=== PATIENT | female | born 1960 | race African-American/Black ===

== ENCOUNTER 2017-10-25 17:26 | Inpatient (IN) | payer MEDICAID ==
[~2017-10-25] VITALS: Ht 160 cm; Wt 75.4 kg
[~2017-10-25 17:26] MED LIST: ALBU05; ALBUL; FERR-43; FOLI0.8T; PANT40TA4; POTA10TA11; SEROQUEL; TDUR2; VALS80TA2; WARF6TAB22; ZOLOFT; [UNRECOGNIZED DRUG - CODE]
[2017-10-25] MEDS ORDERED: ONDANSETRON HCL 4MG/2ML VIAL IV STA (18:51)
[2017-10-25] MEDS ORDERED: METHYLPREDNISOLONE SOD SUCC 125 MG/2 ML VIAL IV STA (18:51)
[2017-10-25] MEDS ORDERED: MORPHINE SULFATE 4 MG/ML CPJ (NOT FOR IM USE) IV STA (18:51)
[2017-10-25] MEDS ORDERED: ASPIRIN 81MG TABLET PO STA (18:51)
[2017-10-25] MEDS ORDERED: IPRATROPIUM/ALBUTEROL 0.5-3(2.5)MG/3ML NEB HHN ONE (19:00)
[2017-10-25] MEDS ORDERED: LEVOFLOXACIN 750MG PREMIX 150 ML IV ONE (19:00)
[2017-10-25] MEDS ORDERED: MAGNESIUM 2 G PREMIX 50 ML IV ONE (19:00)
[2017-10-25 19:15] LABS: BASOPHILS % 0.6 % (0.0-2.0); EOSINOPHILS % 0.2 % (0.0-5.0); HEMOGLOBIN. 13.9 g/dL (12.0-16.0); LYMPHOCYTES % 12.7 % (20.0-50.0); MEAN CORPUSCULAR HEMOGLOBIN 27.9 pg (28.0-32.0); MEAN CORPUSCULAR VOLUME 82.4 fL (81.0-99.0); MEAN PLATELET VOLUME 8.4 fl (7.4-10.4); MONOCYTES % 6.3 % (2.0-8.0); NEUTROPHILS % 80.2 % (40.0-76.0); PLATELET 275 x1000/uL (130-400); RED BLOOD CELL COUNT 4.98 mill/uL (4.2-5.4); RED CELL DISTRIBUTION WIDTH 18.2 % (11.6-14.6)
[2017-10-25 19:25] LABS: CHLORIDE 99 mEq/L (98-107); ETHANOL BLOOD < 10 mg/dL
[2017-10-25 19:26] LABS: D-DIMER 1.62 mg/L FEU (<0.50); INR 1.4; PARTIAL THROMBOPLASTIN TIME 41.4 sec (23.4-31.0); PROTHROMBIN TIME 14.6 sec (9.4-11.6)
[2017-10-25 19:43] LABS: CREATINE KINASE 1418 IU/L (26-192)
[2017-10-25] MEDS ORDERED: ENOXAPARIN 60MG/0.6ML SYR SUBCUT ONE (19:45)
[2017-10-25 20:10] LABS: BG BASE EXCESS -0.6 mmol/L (-2.0-2.0); BG CARBOXYHEMOGLOBIN 1.3 % (0.5-1.5); BG DEOXYHEMOGLOBIN 6.8 % (0.0-5.0); BG FRACTION INSPIRED OXYGEN 21; BG HCO3 ACT 22.4 mmol/L (22.0-26.0); BG METHEMOGLOBIN 0.1 % (0.0-1.5); BG OXYGEN SATURATION 93.1 % (92.0-98.5); BG OXYHEMOGLOBIN 91.8 % (94.0-97.0); BG PCO2 32.2 mmHg (35.0-45.0); BG PO2 62.1 mmHg (75.0-100.0); BG SAMPLE SITE RIGHT RADIAL; BG TOTAL HEMOGLOBIN 13.9 g/dL (12.0-18.0); BG VENT MODE ROOM AIR
[2017-10-25] MEDS ORDERED: IOHEXOL-350 100 ML BOTTLE ONE (21:09)
[2017-10-25] MEDS ORDERED: HYDROMORPHONE HCL/PF 2MG/ML CPJ IV PRN (23:15)
[2017-10-25] MEDS ORDERED: METOPROLOL TARTRATE 50MG TABLET PO ONE (23:34)
[2017-10-25] MEDS: NITROGLYCERIN OINT 1GM/INCH UDPKT TD SCH (23:59)
[2017-10-26] VITALS (13 sets, daily range): BP systolic 90–136; BP diastolic 55–93
[2017-10-26] MEDS: ATORVASTATIN CALCIUM 40MG TABLET PO SCH ×2 (00:02→20:41)
[2017-10-26] MEDS: METOPROLOL TARTRATE 50MG TABLET PO SCH ×2 (00:02→08:15)
[2017-10-26] MEDS: IPRATROPIUM/ALBUTEROL 0.5-3(2.5)MG/3ML NEB HHN PRN ×2 (05:16→12:30)
[2017-10-26] MEDS: OMEPRAZOLE 20MG CAPSULE EXTENDED RELEASE PO SCH (06:26)
[2017-10-26] MEDS: NITROGLYCERIN OINT 1GM/INCH UDPKT TD SCH ×3 (06:27→21:14)
[2017-10-26 07:42] LABS: CLARITY URINE CLEAR (CLEAR); COLOR URINE YELLOW (YELLOW); KETONES URINE NEGATIVE (NEGATIVE); LEUKOCYTE ESTERASE URINE NEGATIVE (NEGATIVE); NITRITE URINE NEGATIVE (NEGATIVE); OCCULT BLOOD URINE 2+ (NEGATIVE); PROTEIN URINE NEGATIVE (NEGATIVE); SPECIFIC GRAVITY URINE 1.064 (1.005-1.030); UROBILINOGEN URINE 0.2 E.U./dL (0.2-1.0)
[2017-10-26 07:52] LABS: *AMPHETAMINES SCREEN URINE NEGATIVE (NEGATIVE); *BARBITURATES SCREEN URINE NEGATIVE (NEGATIVE); *BENZODIAZEPINES SCREEN URINE NEGATIVE (NEGATIVE); *COCAINE SCREEN URINE PRESUMTIVE POSITIVE (NEGATIVE); CANNABINOID URINE SCREEN PRESUMTIVE POSITIVE (NEGATIVE); METHADONE URINE SCREEN NEGATIVE (NEGATIVE); OPIATES URINE SCREEN PRESUMTIVE POSITIVE (NEGATIVE); PHENCYCLIDINE URINE SCREEN NEGATIVE (NEGATIVE)
[2017-10-26] MEDS: ASPIRIN 325MG EC TABLET PO SCH (08:14)
[2017-10-26] MEDS: ENOXAPARIN 40MG/0.4ML SYR SUBCUT SCH (08:16)
[2017-10-26] MEDS ORDERED: IPRATROPIUM/ALBUTEROL 0.5-3(2.5)MG/3ML NEB HHN PRN (08:45)
[2017-10-26] MEDS ORDERED: METHYLPREDNISOLONE SOD SUCC 40 MG/ML VIAL IV SCH (09:00)
[2017-10-26] MEDS: LEVOFLOXACIN 500MG PREMIX 100 ML IV SCH (10:05)
[2017-10-26] MEDS: BUDESONIDE 0.5MG/2ML NEB HHN SCH ×2 (12:29→21:44)
[2017-10-26] MEDS: NICOTINE 7MG PATCH TD SCH (13:11)
[2017-10-26] MEDS: HYDROCODONE/ACETAMINOPHEN 5/325MG TABLET PO PRN ×2 (13:19→20:43)
[2017-10-26] MEDS ORDERED: WARFARIN SODIUM 7.5MG TABLET PO SCH (18:00)
[2017-10-26] MEDS: METHYLPREDNISOLONE SOD SUCC 40 MG/ML VIAL IV SCH (20:41)
[2017-10-27] VITALS (12 sets, daily range): BP systolic 90–118; BP diastolic 52–73
[2017-10-27] MEDS ORDERED: ONDANSETRON HCL 4MG/2ML VIAL IV PRN
[2017-10-27] MEDS: ZOLPIDEM TARTRATE 5MG TABLET PO PRN ×2 (00:01→21:26)
[2017-10-27] MEDS: NITROGLYCERIN OINT 1GM/INCH UDPKT TD SCH ×3 (06:00→21:29)
[2017-10-27] MEDS: OMEPRAZOLE 20MG CAPSULE EXTENDED RELEASE PO SCH (06:42)
[2017-10-27 07:06] LABS: BASOPHILS % 0.5 % (0.0-2.0); HEMATOCRIT. 33.6 % (36.0-48.0); HEMOGLOBIN. 11.2 g/dL (12.0-16.0); LYMPHOCYTES % 14.1 % (20.0-50.0); MEAN CORPUSCULAR HEMOGLOBIN 27.4 pg (28.0-32.0); MEAN CORPUSCULAR VOLUME 82.1 fL (81.0-99.0); MEAN PLATELET VOLUME 8.5 fl (7.4-10.4); MONOCYTES % 5.5 % (2.0-8.0); NEUTROPHILS % 79.9 % (40.0-76.0); PLATELET 238 x1000/uL (130-400); RED BLOOD CELL COUNT 4.09 mill/uL (4.2-5.4)
[2017-10-27 07:12] LABS: INR 1.9; PROTHROMBIN TIME 19.2 sec (9.4-11.6)
[2017-10-27 07:26] LABS: CHLORIDE 102 mEq/L (98-107)
[2017-10-27] MEDS: ASPIRIN 325MG EC TABLET PO SCH (08:20)
[2017-10-27] MEDS: ENOXAPARIN 40MG/0.4ML SYR SUBCUT SCH (08:20)
[2017-10-27] MEDS: METHYLPREDNISOLONE SOD SUCC 40 MG/ML VIAL IV SCH (08:20)
[2017-10-27] MEDS: NICOTINE 7MG PATCH TD SCH (08:21)
[2017-10-27] MEDS: LEVOFLOXACIN 500MG PREMIX 100 ML IV SCH (08:21)
[2017-10-27] MEDS: BUDESONIDE 0.5MG/2ML NEB HHN SCH ×2 (09:05→20:08)
[2017-10-27] MEDS: IPRATROPIUM/ALBUTEROL 0.5-3(2.5)MG/3ML NEB HHN PRN (12:00)
[2017-10-27] MEDS: HYDROCODONE/ACETAMINOPHEN 5/325MG TABLET PO PRN (16:48)
[2017-10-27] MEDS ORDERED: WARFARIN SODIUM 5MG TABLET PO SCH (18:00)
[2017-10-27] MEDS ORDERED: DOBUTAMINE 250MG PREMIX 250 ML IV NR (19:15)
[2017-10-27] MEDS: GUAIFENESIN 600MG ER TABLET PO SCH (20:42)
[2017-10-27] MEDS: ATORVASTATIN CALCIUM 40MG TABLET PO SCH (20:42)
[2017-10-28] VITALS (8 sets, daily range): BP systolic 94–125; BP diastolic 53–71
[2017-10-28] MEDS: NITROGLYCERIN OINT 1GM/INCH UDPKT TD SCH ×2 (05:42→14:14)
[2017-10-28] MEDS: BUDESONIDE 0.5MG/2ML NEB HHN SCH (08:45)
[2017-10-28] MEDS: IPRATROPIUM/ALBUTEROL 0.5-3(2.5)MG/3ML NEB HHN PRN (08:45)
[2017-10-28] MEDS: ASPIRIN 325MG EC TABLET PO SCH (09:37)
[2017-10-28] MEDS: NICOTINE 7MG PATCH TD SCH (09:37)
[2017-10-28] MEDS: FAMOTIDINE 20MG TABLET PO SCH ×2 (09:37→17:30)
[2017-10-28] MEDS: GUAIFENESIN 600MG ER TABLET PO SCH (09:37)
[2017-10-28 11:29] LABS: BASOPHILS % 0.9 % (0.0-2.0); EOSINOPHILS % 0.6 % (0.0-5.0); HEMATOCRIT. 34.2 % (36.0-48.0); HEMOGLOBIN. 11.4 g/dL (12.0-16.0); LYMPHOCYTES % 25.9 % (20.0-50.0); MEAN CORPUSCULAR HEMOGLOBIN 27.6 pg (28.0-32.0); MEAN CORPUSCULAR VOLUME 82.9 fL (81.0-99.0); MEAN PLATELET VOLUME 8.2 fl (7.4-10.4); MONOCYTES % 7.3 % (2.0-8.0); NEUTROPHILS % 65.3 % (40.0-76.0); PLATELET 238 x1000/uL (130-400); RED BLOOD CELL COUNT 4.13 mill/uL (4.2-5.4); RED CELL DISTRIBUTION WIDTH 17.5 % (11.6-14.6)
[2017-10-28 11:30] LABS: INR 2.2; PROTHROMBIN TIME 22.7 sec (9.4-11.6)
[2017-10-28] MEDS ORDERED: DOBUTAMINE 250MG PREMIX 250 ML IV ONE (11:53)
[2017-10-28] MEDS: LEVOFLOXACIN 500MG PREMIX 100 ML IV SCH (12:14)
[2017-10-28 12:21] LABS: CHLORIDE 107 mEq/L (98-107)
[2017-10-28 12:37] LABS: CREATINE KINASE MB FRACTION 6.6 ng/mL (0.5-3.6)
[2017-10-28 13:17] LABS: TROPONIN I 8.6 ng/mL (0.00-0.04)
[2017-10-28] MEDS ORDERED: WARFARIN SODIUM 5MG TABLET PO SCH (18:00)
[2017-10-29] MEDS ORDERED: LEVOFLOXACIN 500MG TABLET PO SCH (11:00)
== END 2017-10-28 18:55 | disposition home or self-care (01) | DRG 720 ==
LOC: ER 17:26 → 3WST 19:54 → EDBEDREQ 19:59 → EDBEDREQTM 19:59 → EDBEDREQSVC 19:59 → ENRESERV 21:03
PROVIDERS: ADMIT Internal Medicine; ATTEND Internal Medicine
DX: A41.9 Sepsis, unspecified organism (principal); J96.01 Acute respiratory failure with hypoxia; I21.4 Non-ST elevation (NSTEMI) myocardial infarction; I50.23 Acute on chronic systolic (congestive) heart failure; D68.9 Coagulation defect, unspecified; M62.82 Rhabdomyolysis; R56.9 Unspecified convulsions; J44.1 Chronic obstructive pulmonary disease with (acute) exacerbation; J06.9 Acute upper respiratory infection, unspecified; K64.9 Unspecified hemorrhoids; E78.00 Pure hypercholesterolemia, unspecified; E78.5 Hyperlipidemia, unspecified; F12.10 Cannabis abuse, uncomplicated; F14.10 Cocaine abuse, uncomplicated; F17.210 Nicotine dependence, cigarettes, uncomplicated; F32.9 Major depressive disorder, single episode, unspecified; F41.9 Anxiety disorder, unspecified; G43.909 Migraine, unspecified, not intractable, without status migrainosus; I11.0 Hypertensive heart disease with heart failure; H92.09 Otalgia, unspecified ear; R63.4 Abnormal weight loss; H54.7 Unspecified visual loss; I05.0 Rheumatic mitral stenosis; I73.9 Peripheral vascular disease, unspecified; K59.00 Constipation, unspecified; Z59.0 Homelessness; Z79.01 Long term (current) use of anticoagulants; Z79.899 Other long term (current) drug therapy; Z88.0 Allergy status to penicillin; Z68.29 Body mass index [BMI] 29.0-29.9, adult; Z95.2 Presence of prosthetic heart valve
CPT/HCPCS: 36415; 36600; 71045; 71275; 78452; 80048; 80053; 80305; 81003; 82375; 82550; 82553; 82805; 83036; 83605; 83690; 83880; 84443; 84484; 85025; 85379; 85610; 85730; 87040; 93005; 93017; 93306; 94640; 94664; 96365; 96367; 96372; 96375; 99291; A9500; G0482; J1170; J1250; J1650; J1956; J2270; J2405; J2920; J2930; J3475; J7050; J7620; J7626; Q9967

== ENCOUNTER 2021-09-02 13:32 | Emergency (ER) | payer MEDICAID, OTHER ==
[~2021-09-02] VITALS: Ht 172.7 cm; Wt 73.0 kg
[~2021-09-02 13:32] MED LIST changes: -ALBU05; +ALBU4TAB6 MT; -ALBUL; +ATOR40TA70 MT; +CARV6.2548 MT; +CLOB10TA PO; +FAMO20TA8 MT; -FERR-43; +FERR325T6 MT; +FOLI-43 MT; -FOLI0.8T; +GABA-532 MT; +LISI2.5T47 MT; +LORA-250 MT; +METO25TA6 MT; +NITR0.4T49 SL; +OLAN2.5T3 MT; -PANT40TA4; +PHEN100C12 MT; -POTA10TA11; -SEROQUEL; -TDUR2; +THEO400T MT; -VALS80TA2; +VITA1CAP MT; -WARF6TAB22; -ZOLOFT
[2021-09-02] MEDS ORDERED: ONDANSETRON HCL 4MG/2ML INJ IV STA ×2 (13:52→16:51)
[2021-09-02] MEDS ORDERED: ASPIRIN 81MG TABLET PO ONE (14:00)
[2021-09-02] MEDS ORDERED: NITROGLYCERIN 0.4MG TABLET SL SL PRN (14:00)
[2021-09-02 15:17] LABS: CHLORIDE 104 mEq/L (98-107)
[2021-09-02 15:43] LABS: BASOPHILS % 0.6 % (0.0-2.0); EOSINOPHILS % 0.1 % (0.0-5.0); HEMATOCRIT. 40.9 % (36.0-48.0); HEMOGLOBIN. 13.4 g/dL (12.0-16.0); LYMPHOCYTES % 15.7 % (20.0-50.0); MEAN CORPUSCULAR HEMOGLOBIN 28.1 pg (28.0-32.0); MEAN CORPUSCULAR VOLUME 85.9 fL (81.0-99.0); MEAN PLATELET VOLUME 8.7 fl (7.4-10.4); MONOCYTES % 6.1 % (2.0-8.0); NEUTROPHILS % 77.5 % (40.0-76.0); PLATELET 234 x1000/uL (130-400); RED BLOOD CELL COUNT 4.77 mill/uL (4.2-5.4); RED CELL DISTRIBUTION WIDTH 17.7 % (11.6-14.6)
[2021-09-02] MEDS ORDERED: MORPHINE SULFATE 4 MG/ML CPJ (NOT FOR IM USE) IV STA (16:51)
[2021-09-02] MEDS ORDERED: DILTIAZEM HCL 120MG CAPSULE CD 24HR PO ONE (19:00)
[2021-09-02 20:06] LABS: *AMPHETAMINES SCREEN URINE NEGATIVE (NEGATIVE); *BARBITURATES SCREEN URINE NEGATIVE (NEGATIVE); *BENZODIAZEPINES SCREEN URINE NEGATIVE (NEGATIVE); *COCAINE SCREEN URINE NEGATIVE (NEGATIVE); METHADONE URINE SCREEN NEGATIVE (NEGATIVE)
[2021-09-02 20:07] LABS: CANNABINOID URINE SCREEN PRESUMTIVE POSITIVE (NEGATIVE); OPIATES URINE SCREEN PRESUMTIVE POSITIVE (NEGATIVE); PHENCYCLIDINE URINE SCREEN NEGATIVE (NEGATIVE)
[2021-09-02 20:26] LABS: CLARITY URINE TURBID (CLEAR); COLOR URINE DARK YELLOW (YELLOW)
[2021-09-02 20:27] LABS: KETONES URINE TRACE (NEGATIVE); NITRITE URINE NEGATIVE (NEGATIVE); OCCULT BLOOD URINE 1+ (NEGATIVE); PROTEIN URINE 1+ (NEGATIVE); SPECIFIC GRAVITY URINE 1.033 (1.005-1.030)
[2021-09-02 20:28] LABS: LEUKOCYTE ESTERASE URINE 1+ (NEGATIVE)
[2021-09-02] MEDS ORDERED: MORPHINE SULFATE 2 MG/ML CPJ (NOT FOR IM USE) IV ONE (20:30)
[2021-09-02] MEDS ORDERED: ONDANSETRON HCL 4MG/2ML INJ IV ONE (20:30)
[2021-09-02 20:50] VITALS: BP 134/88
== END 2021-09-02 20:50 | disposition short-term general hospital (02) ==
LOC: ER 13:39
DX: R11.2 Nausea with vomiting, unspecified (principal); I48.91 Unspecified atrial fibrillation; R74.8 Abnormal levels of other serum enzymes; I10 Essential (primary) hypertension; R73.9 Hyperglycemia, unspecified; E78.00 Pure hypercholesterolemia, unspecified; I25.2 Old myocardial infarction; J45.909 Unspecified asthma, uncomplicated; F12.90 Cannabis use, unspecified, uncomplicated; Z88.0 Allergy status to penicillin; Z79.51 Long term (current) use of inhaled steroids; Z79.899 Other long term (current) drug therapy
CPT/HCPCS: 36415; 71045; 74176; 80053; 80305; 81003; 83880; 84484; 85025; 93005; 96374; 96375; 96376; 99285; J2270; J2405